=== PATIENT | female | born 1960 | race Caucasian/White ===

== ENCOUNTER 2016-07-28 05:45 | Day surgery (SDC) | payer MEDICARE, MEDICAID ==
[~2016-07-28] VITALS: Ht 160 cm; Wt 69.6 kg
[2016-07-28] VITALS (9 sets, daily range): BP systolic 114–139; BP diastolic 55–87; PULSE 59–74; RESP 10–20; O2SAT 95–98
[~2016-07-28 05:45] MED LIST: ALBU2.5V4 INHALATION; ATOR80TA PO; ATRINH INH; BUSP5TAB3 PO; FENO160T14 PO; GABA-504 PO; GLIP10TA10 PO; HYDR-3740 PO; HYDR-4003 PO; IPRA4AER IH; LAMO200T2 PO; LURA60TA PO; METF1000 PO; SALM50DI IH; TRAZ-115 PO
[2016-07-28] MEDS ORDERED: Ondansetron 2 mg/mL 2 mL Inj ONE (05:46)
[2016-07-28] MEDS ORDERED: EPHEDrine/NS 5 mg/mL 5 mL Syringe ONE (05:46)
[2016-07-28] MEDS ORDERED: MetoCLOpramide 5 mg/mL 2 mL Inj ONE (05:46)
[2016-07-28] MEDS ORDERED: fentaNYL-PF 50 mCg/mL 2 mL Inj ONE (05:46)
[2016-07-28] MEDS ORDERED: Propofol 10,000 mCg/mL 20 mL Inj ONE (05:46)
[2016-07-28] MEDS ORDERED: CeFAZolin Inj 2 GM in IV Premix 1 EACH IV SCH (06:00)
[2016-07-28] MEDS: Lactated Ringer's 1,000 ML IV SCH ×2 (06:46→07:45)
[2016-07-28] MEDS ORDERED: Lactated Ringer's 1,000 ML IV SCH (07:23)
[2016-07-28] MEDS ORDERED: Lactated Ringer's 500 ML IV PRN (07:23)
--- NOTE | 2016-07-28 07:23 | PCM.HPANE ---
Patient Data Date of Service: July 28, 2016 (719) Surgeon Admitting Provider: Attending Provider:Matt Obrien MD Primary Care Physician:Shaka Canseco MD Other Provider:Ernie Perez Anesthesia Reason for Visit Right Knee Medial Meniscal Tear Ht/WT & BMI Height (Feet): 5 Height (Inches): 3 Weight (Kilograms): 69.6 Body Mass Index 27.00 Allergies Coded Allergies: No Known Allergies (Unverified , 07/22/16) Past Anesthesia History Anesthesia History: Denies:: Anesthesia Reactions, Malignant Hyperthermia Diabetes History Hx Diabetes?: Yes Type of Diabetes: Type II Glycemic Control: Oral Medication Current Bedside Blood Glucose: 112 MRSA MRSA: No Medications Home Meds Incl Beta Millicent: No Reported Medications Trazodone 50 Mg [id number] Mg PO HS Ref 0 07/22/16 Metformin (Glucophage)1,000 Mg Tablet1,000 Mg PO BID Ref 0 07/22/16 Lurasidone (Latuda)60 Mg Ubaxds84 Mg PO DAILY 07/22/16 Lamotrigine 200 Mg [id number] Mg PO BID Ref 0 07/22/16 Hydrocodone-Acetaminophen 10-325 mg 1 Each Tablet1 Tablet PO BID PRN For Pain Ref 0 07/22/16 Glipizide 10 Mg Cuhqyo25 Mg PO BID 30 Days 07/22/16 Gabapentin 400 Mg [id number] Mg PO TID Ref 0 07/22/16 Fenofibrate 160 Mg Sbltnt783 Mg PO DAILY Ref 0 07/22/16 Albuterol/Ipratropium (Combivent Respimat Inhal [place])120 Spr/4 Gm Inhaler1 Puff IH QID #1 INH Ref 0 07/22/16 Buspirone 5 Mg Tablet5 Mg PO BID Ref 0 07/22/16 Atorvastatin (Lipitor)80 Mg Fernnq59 Mg PO DAILY Ref 0 07/22/16 Albuterol Neb Soln 2.5 Mg/3 Ml Vial.neb2.5 Mg INHALATION QID PRN For Shortness of Breath Ref 0 07/22/16 Discontinued Reported Medications Salmeterol Xinafoate (Serevent Diskus)50 Mcg/Puff Inhaler1,400 Mcg IH BID 07/22/16 Hydrocodone-Acetaminophen 5-325 mg 1 Each Tablet1 Tablet PO Q4H PRN For Pain Ref 0 07/22/16 Ipratropium [place] (Atrovent HFA)200 Puff/12.9 Gm Inhaler2 Puff INH QID #1 INH Ref 0 07/22/16 History History of ENT Problems?: Yes HEENT History: Denies:: Cataracts (C/OF DRY EYES) Denture Type: None Teeth Condition: Tooth Decay Inflamed Gums Hx of Heart Problems?: Yes Cardiovascular History: Positive for:: Irregular Heartbeat (OCCAS PAC'S,PVC'S/ ZIO PATCH 04/2015 PT REPORTS PALPITATIONS ) Denies:: Heart Murmur (ECHO 04/2015 EF 60-65%) Hypertension Valvular Heart Disease Hx of Respiratory Problem?: Yes Respiratory History: Positive for:: COPD Dyspnea (R/T COPD) Use of Inhalers / NEBS Denies:: Use of C-PAP Machine Hx Neurologic Problems?: Yes Other Neurological Pertinent: C/OF DIABETIC POLYNEUROPATHY Hx of GI Problems?: Yes Other GI Pertinent History: HX IBS Hx of Problems?: No Female Hx: Denies:: Currently Skin History: Denies:: History Skin Disorders? Pressure Ulcers Hx Musculoskeletal Problems?: Yes Musculoskeletal History: Positive for:: Fibromyalgia Musculoskeletal Trauma (S/P RT SHOULDER RPR X2 RT KNEE MEDIAL MENISCAL TEAR=CURRENT PROBLEM) Hx of Psycho/Social Problems?: Yes Psycho Social History: Positive for:: Anxiety (PTSD) Bipolar Disorder Hx Surgeries?: Yes (RT SHOULDER RPR X2,BTL) Hx Any Other Health Problems?: Yes Other History: Denies:: Cancer Endocrine Disease Hospitalization Thyroid Disease History Blood Transfusions: Denies:: Blood Transfusions Hx Diabetes: YesBedside Blood Glucose: 112 Hx Substance Use: Yes (REMOTE HX OF ABUSE-METH,COCAINE)Have You Smoked inLast 12 mo: YesApprox How Many Cigarettes/day: 3/4 PPD Stop/Bang S-Snoring: Do You Snore Loudly: No T-Tired: feel tired, fatigued: No O-Obsered: Observed not breath: No P-Blood Pressure: treated: No B- Body Mass Index > 35 kg/m2: No A- Age over 50: Yes N- Neck Large Circumference: No G- Gender Male: No GISEL Total Score: 1 GISEL Risk Assessment: Low Risk, <3 Yes Risk Assessment Category Category 1A: Patient has history of documented sleep apnea, and HAS NOT received any narcotic, sedative or anesthesia administration during this stay. Category 1B: Patient has history of documented sleep apnea, and HAS received any narcotic , sedative or anesthesia administration during this stay Category 2: Patient has SUSPECTED Obstructive Sleep Apnea, and HAS received any narcotic , sedative or anesthesia administration during this stay. Category 3: Patient has SUSPECTED Obstructive Sleep Apnea and HAS NOT received narcotic, sedative or anesthesia administration during this stay. Category 4: Outpatient in Procedural Areas with known sleep apnea or who screen positive for High Risk via the STOP/BANG questionnaire. Exam Exam Vital Signs Vital Signs Date Time Temp Pulse Resp B/P Pulse Ox O2 Delivery O2 Flow Rate FiO2 07/28/16 06:09 36.6 62 16 114/66 97 Room Air General Appearance: Oriented X3, Cooperative HEENT/AIRWAY: MP 2, Other (POOR DENTITION) Lungs: Clear to Auscultation Heart: Exam Unremarkable Meds/Labs/Diagnostics Admission Meds Current Medications Lactated Ringer's (Lr) 1,000 ml @ 120 mls/hr Q8H20M IV Last administered on t 06:46; Start 07/28/16 at 05:00; Stop 07/28/16 at 13:19 Bedside Blood Glucose: 112 Plan Impression Patient chart reviewed, patient interviewed and anesthestic plan with risks, benefits, and alternatives discussed, and informed consent obtained. NPO per Anesth. Guidelines: Yes ASA Physical Status: ASA2 Mod Systemic Disease Anesthetic Plan: GA Bene/Risks/Altern/Consents: Yes HP Complete Prior to Induction: Yes Tushar Dimas MD July 28, 2016 07:23
[2016-07-28] MEDS ORDERED: fentaNYL-PF 50 mCg/mL 2 mL Inj IVPUSH PRN (07:25)
[2016-07-28] MEDS ORDERED: MetoCLOpramide 5 mg/mL 2 mL Inj IVPUSH PRN (07:25)
[2016-07-28] MEDS ORDERED: Ondansetron 2 mg/mL 2 mL Inj IVPUSH PRN (07:25)
[2016-07-28] MEDS ORDERED: EPHEDrine Sulfate 50 mg/mL Inj IVPUSH PRN (07:25)
[2016-07-28] MEDS ORDERED: Dexamethasone 4 mg/mL Inj IVPUSH PRN (07:25)
[2016-07-28] MEDS ORDERED: Phenylephrine 10,000 mCg/mL Inj IVPUSH PRN (07:25)
[2016-07-28] MEDS ORDERED: HYDROmorphone 1 mg/mL Inj IVPUSH PRN (07:25)
[2016-07-28] MEDS ORDERED: Ropivacaine-PF 0.5% 30 mL Inj INJ ONE (08:15)
--- NOTE | 2016-07-28 08:36 | PCM.ANEP1 ---
Post Anesthesia Phase 1 PACU Phase 1 Assessment Date of Service: July 28, 2016 (0720) Vital Signs 36.5, 138/65, 10, 58, 98% Vital Signs Date Time Temp Pulse Resp B/P Pulse Ox O2 Delivery O2 Flow Rate FiO2 07/28/16 06:09 36.6 62 16 114/66 97 Room Air Anesthetic Administered: GA Level of Alertness: Awake, talking LUTZ's with Equal Strength: Yes Pain: No Pain Scale Score: 0 Nausea or Vomiting: No Oxygen Delivery: Simple Mask Lungs: Clear to Auscultation Dermatome Level: Full Sensation Summary uneventful GA Complications: No Follow up Care: No Comments doing well Tushar Dimas MD July 28, 2016 08:36
[2016-07-28] MEDS ORDERED: Ketorolac 15 mg/mL Inj IVPUSH ONE (08:50)
[2016-07-28] MEDS ORDERED: HYDROcodone-APAP 5-325 mg Tablet PO PRN (08:50)
--- NOTE | 2016-07-28 08:55 | PCM.ORTHOP ---
Orthopedic Operative Report Date of Service: July 28, 2016 (0720) Pre Operative Diagnosis Right knee medial and lateral meniscus tears Post Operative Diagnosis Same Procedure Right knee arthroscopy, partial medial meniscectomy, partial lateral meniscectomy, chondroplasty, partial synovectomy Surgeon Surgeon: Matt Obrien MD Assistants: None Indication for Procedure Right knee meniscus tear Findings Per dictation Details of Procedure - right knee arthroscopy, -right knee, partial medial meniscectomy -right knee, partial lateral meniscectomy -right knee, chondroplasty -right knee, partial synovectomy INDICATIONS: Zo Dao is a 55-year-old female who has had a history of right knee pain. The patient has failed conservative management. 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 MRI was obtained which reveals medial and lateral meniscus tear. The patient has had persistent symptoms and is now brought to the operating room for arthroscopy. The risks, benefits, and alternatives of surgery were discussed with the patient. The risks included but were not limited to infection, bleeding, damage to vessels and nerves, loss of motion, continued pain, re-tear of the meniscus, deep venous thrombosis, and complications due to anesthesia including nerve injury, myocardial infarction, stroke, , etc. The patient stated understanding of the nature of the surgical procedure and gave written and verbal consent to proceed. PROCEDURE: The patient was brought to the operating room and placed supine on the operating room table. After the administration of general anesthesia the patient was placed in the supine position. Examination of the knee revealed no evident instability with a trace effusion. All prominences were padded with appropriately and neurovascular structures protected. The right knee was confirmed to be the appropriate site following surgical time out. The right lower extremity was examined under anesthesia. Range of motion months was 0- 135 degrees. There was no varus or valgus or anterior or posterior instability. The right lower extremity was then prepped and draped in the usual fashion. Sterile prep and drape was then undertaken of the knee. The knee joint was injected with 20 ccs of 1% Lidocaine, along with 3 ccs of 1 % lidocaine in the medial and lateral portal sites respectively. A standard anterolateral parapatellar stab wound was created. The knee joint was entered with a blunt-tipped obturator, followed by the 30-degree video arthroscope. An anteromedial portal was established under arthroscopic control. A routine arthroscopic survey was performed. 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 The medial joint space was then entered. The articular surfaces showed grade 3/ 4 chondromalacia. A posterior horn medial meniscal tear was noted with a small flap. The shaver and the cutting instruments were inserted, and a debridement of the meniscus back to healthy tissue was then undertaken. The ACL and PCL were noted to be intact. The lateral joint space was then entered. The articular surfaces were intact with grade 2/3 chondromalacia. There was a degenerative tear to the lateral aspect of the lateral meniscus. A combination of the shaver and cutting instruments were then inserted and a debridement of this tissue down to stable tissue was undertaken. Moderate synovitis was noted anteriorly in the medial and lateral compartment and debrided with a shaver. The knee was irrigated with an additional 2 liters of lactated Ringer's solution. Excess fluid was drained. The portals were closed with 3-0 nylon as well as xeroform. The knee was injected with 20 mL of 0.5% ropivacaine. A dry sterile dressing was applied, followed by an SHARA hose, soft roll, and EDOUARD bandage. The patient was awakened in the operating room and transported to the recovery room in satisfactory condition. The patient appeared to tolerate the procedure well. At the completion of surgery the patient had soft compartments , palpable pulses, and brisk capillary refill. There were no complications noted. Please keep dressing clean dry and intact. Do not remove dressing until follow- up in clinic. If the dressing become soaked, you may remove the outer gauze and placed Band-Aids on the wounds. You may weight-bear as tolerated and maintain motion of your knee by bending it daily. You will follow up in clinic in 10-14 days for suture removal, and placement of new Steri-Strips. You will follow-up with me in clinic, and we will start physical therapy if needed. You will follow-up with a me at 6 weeks postop and 12 weeks postop and will be released after that if improved. Please keep the affected extremity elevated when possible. Please take aspirin as prescribed.You may use ice and/ or heat as needed for comfort. (preferably ice during the first 48-72 hours) Please feel free to call with any further questions, comments, and/or concerns. Grafts, Implants: None Complications There were no periprocedural complications identified. Condition Stable Anesthetic Administered: GA Catheters: None Output, Estimated Blood Loss: 5 Blood Admin during surgery: No Surgical Cast or Splint: Other Surgical Specimen Removed: No Specimen sent to Pathology: No copies to: Matt Obrien MD, Christopher L MD July 28, 2016 08:55
== END 2016-07-28 23:59 | disposition home or self-care (01) ==
LOC: SAS 05:45
PROVIDERS: ATTEND Orthopaedic Surgery
DX: S83.241A Other tear of medial meniscus, current injury, right knee, initial encounter (principal); S83.281A Other tear of lateral meniscus, current injury, right knee, initial encounter; W19.XXXA Unspecified fall, initial encounter; Y93.01 Activity, walking, marching and hiking; Y92.019 Unspecified place in single-family (private) house as the place of occurrence of the external cause; M22.41 Chondromalacia patellae, right knee; E11.42 Type 2 diabetes mellitus with diabetic polyneuropathy; J44.9 Chronic obstructive pulmonary disease, unspecified; F31.9 Bipolar disorder, unspecified; F17.210 Nicotine dependence, cigarettes, uncomplicated; E78.5 Hyperlipidemia, unspecified; E66.9 Obesity, unspecified; B18.2 Chronic viral hepatitis C; F14.90 Cocaine use, unspecified, uncomplicated; F15.90 Other stimulant use, unspecified, uncomplicated; Z79.84 Long term (current) use of oral hypoglycemic drugs; Z79.51 Long term (current) use of inhaled steroids
CPT/HCPCS: 29880; J0690; J2250; J2405; J2765; J2795; J3010; J7120